=== PATIENT | female | born 1985 | race Caucasian/White ===

== ENCOUNTER 2017-09-01 21:37 | Emergency (ER) | payer SELFPAY ==
[~2017-09-01] VITALS: Ht 152.4 cm; Wt 68.0 kg
[2017-09-01 21:45] VITALS: BP 126/75
--- NOTE | 2017-09-01 21:52 | NUR ---
Pt presents to ED with c/o rectal bleeding x3 days. Pt states she was seen x1 week ago for the same reason. Pt states bright red blood in stool and feeling fatigued. VSS and within normal limits. A&O with skin warm and dry. Postioned in bed for comfort. ER MD aware. Continue to monitor.
--- NOTE | 2017-09-01 21:58 | NUR ---
PT AMBULATED TO ER CHAIR A
[2017-09-01] MEDS ORDERED: INSULIN REGULAR, HUMAN 100 UNIT/ML VIAL IVP ONE (22:05)
[2017-09-01] MEDS ORDERED: NACL 0.9% 1,000 ML IV ONE (22:05)
[2017-09-01 22:48] LABS: BASOPHILS # (AUTO) 0.2 K/uL (0.00-0.22); BASOPHILS % (AUTO) 1.9 % (0.0-2.0); EOSINOPHILS # (AUTO) 0.1 K/uL (0-0.4); EOSINOPHILS % (AUTO) 1.3 % (0.0-4.0); HEMATOCRIT 40.6 % (36-48); HEMOGLOBIN 13.8 g/dL (12.0-16.0); LYMPHOCYTES # (AUTO) 3.6 K/uL (2.5-16.5); LYMPHOCYTES % (AUTO) 36.8 % (20.5-51.1); MEAN CORPUSCULAR HEMOGLOBIN 28 pg (27-31); MEAN CORPUSCULAR HGB CONC 34 g/dL (33-37); MEAN CORPUSCULAR VOLUME 83.2 fL (80-94); MONOCYTES # (AUTO) 0.7 K/uL (0.8-1.0); MONOCYTES % (AUTO) 7.4 % (1.7-9.3); NEUTROPHILS # (AUTO) 5.1 K/uL (1.8-7.7); NEUTROPHILS % (AUTO) 52.6 % (42.2-75.2); PLATELET COUNT (AUTO) 241 K/uL (140-450); RED BLOOD CELL COUNT(AUTO) 4.88 MIL/uL (4.20-5.40); RED CELL DISTRIBUTION WIDTH 12.2 % (11.6-13.7); WHITE BLOOD COUNT (AUTO) 9.7 K/uL (4.8-10.8)
[2017-09-01 22:50] LABS: APPEARANCE,URINE CLEAR (CLEAR); BILIRUBIN,URINE NEGATIVE (NEGATIVE); BLOOD, URINE 3+ (NEGATIVE); COLOR,URINE YELLOW (YELLOW); LEUKOCYTE ESTERASE ,URINE NEGATIVE (NEGATIVE); NITRITE, URINE NEGATIVE (NEGATIVE); PH,URINE 5.5 (5.0-9.0); UGLUCOSE 3+ (NEGATIVE)
[2017-09-01 23:09] LABS: ALBUMIN 3.5 g/dL (3.4-5.0); ANION GAP 17.5 (8-16); CARBON DIOXIDE 21.8 mmol/L (21-32); CHLORIDE 102 mmol/L (98-107); CREATININE 0.8 mg/dL (0.6-1.3); GFR ARICAN-AMERICAN 106 mL/min (>90); POTASSIUM 3.3 mmol/L (3.5-5.1); SODIUM SERUM 138 mmol/L (136-145); TOTAL BILIRUBIN 0.4 mg/dL (0.0-1.0); UREA NITROGEN, BLOOD 11 mg/dL (7-18)
[2017-09-01 23:09] LABS: RBC,URINE 0-5 (RARE) /HPF (0-5); WBC,URINE 0-5 (RARE) /HPF (0-5)
[2017-09-01 23:14] LABS: ACETONE, SERUM NEGATIVE (NEGATIVE)
[2017-09-01 23:26] LABS: GLUCOSE 421 mg/dL (74-106)
[2017-09-01] MEDS ORDERED: POTASSIUM CHLORIDE 20% 40 MEQ/15 ML UDC PO ONE (23:30)
[2017-09-01 23:40] LABS: ASPARTATE AMINOTRANSFERASE 10 U/L (15-37)
[2017-09-02 00:03] VITALS: BP 126/75
--- NOTE | 2017-09-02 00:03 | NUR ---
Patient discharged with v/s stable. Written and verbal after care instructions given and explained. Patient alert, oriented and verbalized understanding of instructions. Ambulatory with steady gait. All questions addressed prior to discharge. ID band removed. Patient advised to follow up with PMD. Rx of Metformin given. Patient educated on indication of medication including possible reaction and side effects. Opportunity to ask questions provided and answered.
--- NOTE | 2017-09-10 05:45 | NUR ---
Late entry for NS adminstration on 09/01/17 of 1L at 999ml/hr Start time: 2235 End time: 2319 Total of 999ml infused
== END 2017-09-02 00:03 | disposition home or self-care (01) ==
LOC: MED 21:37
DX: E11.65 Type 2 diabetes mellitus with hyperglycemia (principal); K64.9 Unspecified hemorrhoids; E87.6 Hypokalemia
CPT/HCPCS: 36415; 80053; 81001; 81025; 82009; 82948; 84702; 85025; 96360; 99284; J1815; J7030